=== PATIENT | male | born 1975 | race Caucasian/White ===

== ENCOUNTER 2021-12-01 18:54 | Emergency (ER) | payer OTHER ==
[2021-12-01 19:02] VITALS: TEMP 97.9
[2021-12-01] MEDS ORDERED: KETOROLAC 15 MG/ML 1 ML VIAL IVP STA (19:39)
--- NOTE | 2021-12-01 19:45 | ED ---
General Adult HPI - General Chief complaint: Back Pain/Injury Stated complaint: Back Pain Time Seen by Provider: 12/01/21 19:00 Source: patient, EMS, RN notes reviewed, old records reviewed Mode of arrival: EMS Limitations: no limitations - History of Present Illness Initial comments: This is a 46-year-old male who presents emergency Department complaining of lower back pain. Patient states about 7 weeks ago he was in an accident and he injured his lower back. Patient states he has had MRIs and multiple doctor visits both urgent care in ER and they have been unable to figure out what was wrong. Patient states the MRI did not show anything acute. Patient states he's been diagnosed with sciatica and some spinal stenosis. Patient states no acute figure why he is in pain any supposed to have a doctor's appointment tomorrow with a back specialist. Patient states today he was pushing a door and somewhat chilled the door and then his lower back hurt after he was pushed backward. Patient states he did not fall but his lower back hurt quite a bit. Patient denies any numbness or weakness. Patient denies any urinary incontinence or retention. Patient states the pain is just associated to the lower back. Patient any radiation of the pain. Patient did bring a disc of an MRI however patient did not bring a report with the MRI. - Related Data Allergies Allergy/AdvReac Type Severity Reaction Status Date / Time No Known Allergies Allergy Verified 12/01/21 19:58 Review of Systems ROS Statement: Those systems with pertinent positive or pertinent negative responses have been documented in the HPI. ROS Other: All systems not noted in ROS Statement are negative. Past Medical History Past Medical History: Hypertension Additional Past Medical History / Comment(s): Spinal stenosis, degenerative disc disease, sciatica pain History of Any Multi-Drug Resistant Organisms: None Reported Past Surgical History: Heart Catheterization With Stent Past Psychological History: ADD/ADHD, Anxiety, Depression Smoking Status: Vaper Past Alcohol Use History: Rare Past Drug Use History: Marijuana General Exam - General Exam Comments Initial Comments: GENERAL: Patient is well-developed and well-nourished. Patient is nontoxic and well- hydrated and is in mild distress. ENT: Neck is soft and supple. No significant lymphadenopathy is noted. Oropharynx is clear. Moist mucous membranes. Neck has full range of motion without eliciting any pain. EYES: The sclera were anicteric and conjunctiva were pink and moist. Extraocular movements were intact and pupils were equal round and reactive to light. Eyelids were unremarkable. SKIN: Skin is clear with no lesions or rashes and otherwise unremarkable. NEUROLOGIC: Patient is alert and oriented x3. Cranial nerves II through XII are grossly intact. Motor and sensory are also intact. Normal speech, volume and content. Symmetrical smile. Straight leg test is negative bilaterally MUSCULOSKELETAL: Normal extremities with adequate strength and full range of motion. No lower extremity swelling or edema. No calf tenderness. LYMPHATICS: No significant lymphadenopathy is noted PSYCHIATRIC: Normal psychiatric evaluation. Limitations: no limitations Course Vital Signs 12/01/21 18:56 Temperature 97.9 F Pulse Rate 73 Respiratory 18 Rate Blood Pressure 151/106 O2 Sat by Pulse 100 Oximetry Medical Decision Making - Medical Decision Making Lumbosacral x-ray shows no acute abnormality Patient received Toradol and droperidol in the emergency department. Patient was feeling better. Patient states she has an appointment tomorrow with her [facility] doctor at [facility]. - Lab Data Lab Results 12/01/21 Range/Units 20:50 Urine Opiates Screen Not Detected (NotDetected) Ur Oxycodone Screen Not Detected (NotDetected) Urine Methadone Screen Not Detected (NotDetected) Ur Propoxyphene Screen Not Detected (NotDetected) Ur Barbiturates Screen Not Detected (NotDetected) U Tricyclic Antidepress Detected H (NotDetected) Ur Phencyclidine Scrn Not Detected (NotDetected) Ur Amphetamines Screen Not Detected (NotDetected) U Methamphetamines Scrn Not Detected (NotDetected) U Benzodiazepines Scrn Not Detected (NotDetected) Urine Cocaine Screen Not Detected (NotDetected) U Marijuana (THC) Screen Detected H (NotDetected) Disposition Clinical Impression: Chronic back pain Disposition: HOME SELF-CARE Instructions (If sedation given, give patient instructions): Chronic Back Pain (DC) Additional Instructions: Patient should continue taking his tramadol he should take Motrin 600 and Tylenol when necessary Is patient prescribed a controlled substance at d/c from ED?: No Referrals: Ana Calderon PAC [REFERRING] - 1-2 days Time of Disposition: 21:20
--- NOTE | 2021-12-01 20:48 | XR ---
EXAMINATION TYPE: XR lumbosacral spine min 4V DATE OF EXAM: 12/01/2021 COMPARISON: NONE HISTORY: Back pain TECHNIQUE: 5 views FINDINGS: The lumbar vertebrae have normal spacing and alignment. Posterior elements are intact. No c ompression fracture. The sacroiliac joints appear intact. IMPRESSION: Negative lumbar spine exam. No fracture.
[2021-12-01 21:06] LABS: Tricyclic Antidepressant,Urine Detected (NotDetected); Urn Cannabinoid Scrn Detected (NotDetected)
[2021-12-01 21:07] LABS: Amphetamine Screen,Urine Not Detected (NotDetected); Barbiturate Screen,Urine Not Detected (NotDetected); Benzodiazepines Screen,Urine Not Detected (NotDetected); Cocaine Screen,Urine Not Detected (NotDetected); Methadone Screen, Urine Not Detected (NotDetected); Opiate Screen,Urine Not Detected (NotDetected); Oxycodone Screen, Urine Not Detected (NotDetected); Phencyclidine Screen,Urine Not Detected (NotDetected)
[2021-12-01 21:47] VITALS: RESP 16
[2021-12-01] MEDS ORDERED: HYDROmorphone 1 MG/ML 1 ML SYRINGE IVP STA (21:47)
[2021-12-01 22:19] VITALS: BP 142/95; PULSE 84
== END 2021-12-01 22:25 | disposition home or self-care (01) ==
LOC: EC 18:54 → SUPCPDRO 18:54 → EC 22:25
DX: G89.29 Other chronic pain (principal); M54.50 Low back pain, unspecified; I10 Essential (primary) hypertension; F17.290 Nicotine dependence, other tobacco product, uncomplicated; F12.90 Cannabis use, unspecified, uncomplicated
CPT/HCPCS: 80306; 72110; 99283; 96374; 96375 ×2; J1170; J1885; J1790